=== PATIENT | male | born 1960 | race Caucasian/White ===

== ENCOUNTER 2021-12-17 16:01 | Emergency (ER) | payer OTHER ==
[~2021-12-17] VITALS: Ht 182.9 cm; Wt 154.0 kg
[2021-12-17] MEDS ORDERED: MELO15TA28 PO (16:08)
[2021-12-17] MEDS ORDERED: predniSONE 20 MG TAB PO ONE (17:45)
[2021-12-17] MEDS ORDERED: MEDR4PAK PO (17:51)
[2021-12-17 18:05] LABS: BASO # 0.1 10^3/uL (0.0-0.2); BASO % 1.1 % (0.0-1.0); EOS # 0.6 10^3/uL (0.0-0.5); EOS % 8.2 % (0.0-3.0); HEMOGLOBIN 13.6 g/dl (13.5-17.5); LYMPH # 1.8 10^3/uL (1.5-5.0); LYMPH % 23.7 % (24.0-44.0); MEAN CORPUSCULAR HEMOGLOBIN 28.8 pg (27.0-33.0); MEAN CORPUSCULAR HGB CONC 33.2 g/dl (32.0-36.5); MEAN CORPUSCULAR VOLUME 86.9 fl (80.0-96.0); NEUTROPHILS # 4.1 10^3/uL (1.5-8.5); NEUTROPHILS % 53.7 % (36.0-66.0); PLATELET COUNT, AUTOMATED 315 10^3/uL (150-450); RED BLOOD COUNT 4.72 10^6/uL (4.30-6.10); WHITE BLOOD COUNT 7.6 10^3/uL (4.0-10.0)
[2021-12-17 18:07] VITALS: BP 156/88
[2021-12-17 19:02] LABS: ERYTHROCYTE SEDIMENTATION RATE 43 mm/hr (0-20)
== END 2021-12-17 18:12 | disposition home or self-care (01) ==
LOC: M ED 16:01
DX: R22.41 Localized swelling, mass and lump, right lower limb (principal); M25.561 Pain in right knee; X50.0XXA Overexertion from strenuous movement or load, initial encounter; I87.2 Venous insufficiency (chronic) (peripheral); Z88.2 Allergy status to sulfonamides; Z79.899 Other long term (current) drug therapy
CPT/HCPCS: 36415; 73564; 80047; 85025; 85652; 86140; 99283; J7512